=== PATIENT | male | born 1975 | race Caucasian/White ===

== ENCOUNTER 2022-10-15 17:21 | Outpatient (CLI) | payer OTHER, SELFPAY | END 2022-10-15 17:22 | disposition home or self-care (01) | LOC: AMB 22:20 | PROVIDERS: Visit Provider Family Medicine | DX: S01.81XA Laceration without foreign body of other part of head, initial encounter (principal); W17.89XA Other fall from one level to another, initial encounter | CPT/HCPCS: A0425; A0429 ==